=== PATIENT | male | born 1950 | race Two or more races ===

== ENCOUNTER 2018-01-18 16:44 | Inpatient (IN) | payer SELFPAY ==
[~2018-01-18] VITALS: Ht 180.3 cm; Wt 98.0 kg
[2018-01-18] MEDS ORDERED: PROMETHAZINE HCL 25 MG/ML 1ML IV PRN ×2 (17:30→19:45)
[2018-01-18] MEDS ORDERED: MORPHINE SULFATE 4 MG/ML SYR/VIAL IV ONE (17:30)
[2018-01-18 17:54] LABS: Basophils # (auto) 0.1 uL; Basophils % (auto) 0.3 % (0.0-2.0); Eosinophils # (auto) 0 uL; Eosinophils % (auto) 0.2 % (0.0-7.0); Hematocrit 47.4 % (41.0-53.0); Hemoglobin 16.7 g/dL (13.5-17.5); Lymphocytes # (auto) 0.7 uL; Lymphocytes % (auto) 2.7 % (10.0-50.0); Mean Corpuscular Hemoglobin 29.1 pg (28.0-32.0); Mean Corpuscular Hgb Conc. 35.3 g/dL (32.0-36.0); Mean Corpuscular Volume 82.5 fL (80.0-100.0); Monocytes # (auto) 1.4 uL; Monocytes % (auto) 5.7 % (0.0-12.0); Neutrophils % (auto) 91.1 % (37.0-80.0); Nucleated Red Blood Cells % 0.3 %; Platelet Count (auto) 236 10^3/uL (140-450); Red Blood Cells 5.75 10^6/uL (4.5-5.90); Red Cell Distribution Width 14.5 % (11.8-14.3); White Blood Cell 24.1 10^3/uL (4.4-10.8)
[2018-01-18 18:14] LABS: Alanine Aminotransferase 142 U/L (16-61); Albumin 3.1 g/dL (3.4-5.0); Alkaline Phosphatase 150 U/L (45-117); Amylase 164 U/L (25-115); Anion Gap 10 (5-15); Aspartate Aminotransferase 47 U/L (15-37); BUN/Creatinine Ratio 21.1; Bilirubin, Total 1.9 mg/dL (0.2-1.0); Blood Urea Nitrogen 24 mg/dL (7-18); Calcium 8.1 mg/dL (8.5-10.1); Carbon Dioxide 27 mmol/L (21-32); Chloride 98 mmol/L (98-107); GFR African American 83 mL/min; GFR Non-African American 68 mL/min; Glucose 134 mg/dL (74-106); Lipase 481 U/L (73-393); Potassium 3.2 mmol/L (3.5-5.1); Sodium 135 mmol/L (136-145); Total Protein 7.9 g/dL (6.4-8.2)
[2018-01-18] MEDS ORDERED: cefTRIAXone 1GM/10ml IVPUSH 10 ML IV ONE (19:45)
[2018-01-18] MEDS ORDERED: MORPHINE SULF INJ 2 MG/ML SYRINGE 1ML IV PRN (19:45)
[2018-01-18] MEDS ORDERED: NITROGLYCERIN 0.4 MG SL TAB SL PRN (19:45)
[2018-01-18] MEDS ORDERED: LACTULOSE 20Gm/30ML SOLN PO PRN (19:45)
[2018-01-18] MEDS ORDERED: SODIUM CHLORIDE 0.9% 1,000 ML IV ONE (19:45)
[2018-01-18] MEDS ORDERED: LORazepam 0.5 MG TAB PO PRN (19:45)
[2018-01-18] MEDS ORDERED: TEMAZEPAM 15 MG CAP PO PRN (19:45)
[2018-01-18] MEDS ORDERED: MORPHINE SULFATE 4 MG/ML SYR/VIAL IV PRN (19:45)
[2018-01-18 22:13] VITALS: BP 142/81
[2018-01-18] MEDS: metroNIDAZOLE 500MG/100ML 100 ML IV SCH (22:47)
[2018-01-18 22:48] VITALS: BP 142/81
[2018-01-18] MEDS: SODIUM CHLORIDE 0.9% 1,000 ML IV SCH (22:48)
[2018-01-18] MEDS: MORPHINE SULF INJ 2 MG/ML SYRINGE 1ML IV PRN (22:48)
[2018-01-19] VITALS (8 sets, daily range): BP systolic 120–150; BP diastolic 69–84
[2018-01-19] MEDS: SODIUM CHLORIDE 0.9% 1,000 ML IV SCH ×4 (06:06→22:24)
[2018-01-19] MEDS: metroNIDAZOLE 500MG/100ML 100 ML IV SCH ×3 (06:06→22:22)
[2018-01-19] MEDS: MORPHINE SULF INJ 2 MG/ML SYRINGE 1ML IV PRN ×3 (06:07→18:39)
[2018-01-19 07:08] LABS: Basophils # (auto) 0.3 uL; Basophils % (auto) 1.4 % (0.0-2.0); Eosinophils # (auto) 0 uL; Eosinophils % (auto) 0.2 % (0.0-7.0); Hematocrit 43.4 % (41.0-53.0); Hemoglobin 14.7 g/dL (13.5-17.5); Lymphocytes # (auto) 0.5 uL; Mean Corpuscular Hemoglobin 28.4 pg (28.0-32.0); Mean Corpuscular Hgb Conc. 33.9 g/dL (32.0-36.0); Mean Corpuscular Volume 83.7 fL (80.0-100.0); Monocytes # (auto) 1.1 uL; Monocytes % (auto) 6.2 % (0.0-12.0); Neutrophils # (auto) 16.1 uL; Neutrophils % (auto) 89.2 % (37.0-80.0); Nucleated Red Blood Cells % 0.1 %; Platelet Count (auto) 196 10^3/uL (140-450); Red Blood Cells 5.19 10^6/uL (4.5-5.90); Red Cell Distribution Width 14.5 % (11.8-14.3); White Blood Cell 18.1 10^3/uL (4.4-10.8)
[2018-01-19 07:36] LABS: Albumin 2.4 g/dL (3.4-5.0); Calcium 7.3 mg/dL (8.5-10.1)
[2018-01-19 07:38] LABS: BUN/Creatinine Ratio 30.3
[2018-01-19 07:42] LABS: Cholesterol 96 mg/dL (< 200); HDL Cholesterol 24 mg/dL (40-59); LDL Cholesterol 68 mg/dL (< 100); Triglycerides 98 mg/dL (< 150)
[2018-01-19 07:45] LABS: Urine Bacteria FEW /hpf (None Seen); Urine Blood 1+ /uL (Negative); Urine Mucus FEW (None Seen); Urine WBC 2 /hpf (0 - 3)
[2018-01-19 07:46] LABS: Bilirubin, Total 1.2 mg/dL (0.2-1.0); Total Protein 6.6 g/dL (6.4-8.2)
[2018-01-19] MEDS: PANTOPRAZOLE 40 MG/10 ML VIAL IV SCH (09:28)
[2018-01-19] MEDS: cefTRIAXone 1GM/10ml IVPUSH 10 ML IV SCH (09:29)
[2018-01-19] MEDS: POTASSIUM CHL 20MEQ/100ML 100 ML IV SCH ×2 (11:43→14:37)
[2018-01-19] MEDS ORDERED: ACETAMINOPHEN 325 MG TAB PO PRN (16:15)
[2018-01-20] MEDS: MORPHINE SULF INJ 2 MG/ML SYRINGE 1ML IV PRN ×2 (02:23→19:49)
[2018-01-20 03:55] LABS: Basophils # (auto) 0 uL; Basophils % (auto) 0.2 % (0.0-2.0); Eosinophils # (auto) 0.1 uL; Eosinophils % (auto) 0.6 % (0.0-7.0); Hematocrit 40.4 % (41.0-53.0); Hemoglobin 13.4 g/dL (13.5-17.5); Lymphocytes # (auto) 0.7 uL; Lymphocytes % (auto) 5.5 % (10.0-50.0); Mean Corpuscular Hgb Conc. 33.2 g/dL (32.0-36.0); Mean Corpuscular Volume 84.3 fL (80.0-100.0); Monocytes # (auto) 0.9 uL; Neutrophils # (auto) 11.4 uL; Neutrophils % (auto) 86.7 % (37.0-80.0); Nucleated Red Blood Cells % 0.1 %; Platelet Count (auto) 206 10^3/uL (140-450); Red Blood Cells 4.79 10^6/uL (4.5-5.90); Red Cell Distribution Width 14.5 % (11.8-14.3); White Blood Cell 13.2 10^3/uL (4.4-10.8)
[2018-01-20 04:18] LABS: Alanine Aminotransferase 65 U/L (16-61); Albumin 2.3 g/dL (3.4-5.0); Alkaline Phosphatase 127 U/L (45-117); Amylase 32 U/L (25-115); Anion Gap 9 (5-15); Aspartate Aminotransferase 18 U/L (15-37); Bilirubin, Total 0.7 mg/dL (0.2-1.0); Blood Urea Nitrogen 21 mg/dL (7-18); Carbon Dioxide 26 mmol/L (21-32); Chloride 108 mmol/L (98-107); GFR African American 134 mL/min; GFR Non-African American 111 mL/min; Glucose 95 mg/dL (74-106); Lipase 85 U/L (73-393); Magnesium 2.6 mg/dL (1.6-2.6); Potassium 3.1 mmol/L (3.5-5.1); Sodium 143 mmol/L (136-145); Total Protein 6.3 g/dL (6.4-8.2)
[2018-01-20 05:28] VITALS: BP 148/82
[2018-01-20] MEDS: metroNIDAZOLE 500MG/100ML 100 ML IV SCH ×3 (05:45→21:07)
[2018-01-20] MEDS: SODIUM CHLORIDE 0.9% 1,000 ML IV SCH ×3 (05:46→18:20)
[2018-01-20] MEDS ORDERED: POTASSIUM CHL 20 Meq TABLET PO ONE (06:15)
[2018-01-20] MEDS: cefTRIAXone 1GM/10ml IVPUSH 10 ML IV SCH (08:37)
[2018-01-20 09:00] VITALS: BP 143/84
[2018-01-20] MEDS: PANTOPRAZOLE 40 MG/10 ML VIAL IV SCH (11:12)
[2018-01-20 13:00] VITALS: BP 144/85
[2018-01-20 17:00] VITALS: BP 153/84
[2018-01-20 20:00] VITALS: BP 154/80
[2018-01-20] MEDS ORDERED: LACTULOSE 20Gm/30ML SOLN PO ONE (20:00)
[2018-01-20] MEDS ORDERED: FUROSEMIDE 20 MG/2 ML VIAL IV ONE (20:00)
[2018-01-20 22:00] VITALS: BP 150/81
[2018-01-21] VITALS (7 sets, daily range): BP systolic 143–154; BP diastolic 80–93
[2018-01-21] MEDS: LACTULOSE 20Gm/30ML SOLN PO SCH ×4 (02:18→18:00)
[2018-01-21] MEDS: metroNIDAZOLE 500MG/100ML 100 ML IV SCH ×3 (05:55→22:24)
[2018-01-21 08:36] LABS: Basophils # (auto) 0 uL; Basophils % (auto) 0.3 % (0.0-2.0); Eosinophils # (auto) 0.1 uL; Eosinophils % (auto) 1.2 % (0.0-7.0); Hematocrit 43.2 % (41.0-53.0); Hemoglobin 14.4 g/dL (13.5-17.5); Lymphocytes # (auto) 0.7 uL; Lymphocytes % (auto) 6.3 % (10.0-50.0); Mean Corpuscular Hemoglobin 27.9 pg (28.0-32.0); Mean Corpuscular Hgb Conc. 33.4 g/dL (32.0-36.0); Mean Corpuscular Volume 83.3 fL (80.0-100.0); Monocytes # (auto) 1.1 uL; Monocytes % (auto) 9.5 % (0.0-12.0); Neutrophils # (auto) 9.5 uL; Neutrophils % (auto) 82.7 % (37.0-80.0); Nucleated Red Blood Cells % 0.2 %; Platelet Count (auto) 238 10^3/uL (140-450); Red Blood Cells 5.18 10^6/uL (4.5-5.90); Red Cell Distribution Width 14.4 % (11.8-14.3); White Blood Cell 11.5 10^3/uL (4.4-10.8)
[2018-01-21 08:43] LABS: Albumin 2.3 g/dL (3.4-5.0); BUN/Creatinine Ratio 23.2; Calcium 7.6 mg/dL (8.5-10.1); Potassium 3.3 mmol/L (3.5-5.1)
[2018-01-21 08:46] LABS: Bilirubin, Total 2.7 mg/dL (0.2-1.0); Total Protein 6.6 g/dL (6.4-8.2)
[2018-01-21] MEDS: PANTOPRAZOLE 40 MG/10 ML VIAL IV SCH (10:09)
[2018-01-21] MEDS: cefTRIAXone 1GM/10ml IVPUSH 10 ML IV SCH (10:10)
[2018-01-21] MEDS ORDERED: POTASSIUM CHL 10 Meq TABLET PO ONE (12:45)
[2018-01-21] MEDS: MORPHINE SULF INJ 2 MG/ML SYRINGE 1ML IV PRN (19:41)
[2018-01-22 05:12] VITALS: BP 126/76
[2018-01-22] MEDS: LACTULOSE 20Gm/30ML SOLN PO SCH ×3 (05:54→12:00)
[2018-01-22] MEDS: metroNIDAZOLE 500MG/100ML 100 ML IV SCH (05:54)
[2018-01-22 07:49] LABS: Basophils # (auto) 0.1 uL; Basophils % (auto) 0.5 % (0.0-2.0); Eosinophils # (auto) 0.1 uL; Eosinophils % (auto) 1.4 % (0.0-7.0); Hematocrit 43.4 % (41.0-53.0); Hemoglobin 14.9 g/dL (13.5-17.5); Lymphocytes # (auto) 0.9 uL; Lymphocytes % (auto) 8.2 % (10.0-50.0); Mean Corpuscular Hemoglobin 28.9 pg (28.0-32.0); Mean Corpuscular Hgb Conc. 34.4 g/dL (32.0-36.0); Mean Corpuscular Volume 84.1 fL (80.0-100.0); Monocytes # (auto) 1.1 uL; Monocytes % (auto) 10.5 % (0.0-12.0); Neutrophils # (auto) 8.7 uL; Neutrophils % (auto) 79.4 % (37.0-80.0); Platelet Count (auto) 249 10^3/uL (140-450); Red Blood Cells 5.17 10^6/uL (4.5-5.90); Red Cell Distribution Width 13.9 % (11.8-14.3); White Blood Cell 10.9 10^3/uL (4.4-10.8)
[2018-01-22 08:09] LABS: Albumin 2.4 g/dL (3.4-5.0); BUN/Creatinine Ratio 26.2; Bilirubin, Total 0.8 mg/dL (0.2-1.0); Calcium 7.7 mg/dL (8.5-10.1); Total Protein 6.8 g/dL (6.4-8.2)
[2018-01-22 08:35] VITALS: BP 139/83
[2018-01-22] MEDS ORDERED: METR500T PO (10:14)
[2018-01-22] MEDS ORDERED: LEVO500T21 PO (10:14)
[2018-01-22] MEDS ORDERED: DOCU-94 PO (10:14)
[2018-01-22] MEDS ORDERED: POTASSIUM CHL 20 Meq TABLET PO ONE (10:15)
[2018-01-22] MEDS: cefTRIAXone 1GM/10ml IVPUSH 10 ML IV SCH (11:02)
[2018-01-22] MEDS: PANTOPRAZOLE 40 MG/10 ML VIAL IV SCH (11:03)
[2018-01-22 11:21] VITALS: BP 154/80
[2018-01-22 13:00] VITALS: BP 138/78
== END 2018-01-22 15:15 | disposition home or self-care (01) | DRG 871 ==
LOC: ER 16:49 → TELE 16:50 → TELE-CENTR 21:48
PROVIDERS: ADMIT Internal Medicine; ATTEND Internal Medicine
DX: A41.9 Sepsis, unspecified organism (principal); K85.90 Acute pancreatitis without necrosis or infection, unspecified; J98.11 Atelectasis; E66.9 Obesity, unspecified; E87.6 Hypokalemia; K29.70 Gastritis, unspecified, without bleeding; K59.00 Constipation, unspecified; R73.9 Hyperglycemia, unspecified; K76.0 Fatty (change of) liver, not elsewhere classified; Z90.49 Acquired absence of other specified parts of digestive tract; Z68.30 Body mass index [BMI] 30.0-30.9, adult
CPT/HCPCS: 36415; 71046; 74018; 74176; 74181; 80053; 80061; 81001; 82150; 83605; 83690; 83735; 83880; 84484; 85025; 87040; 93005; 94761; 96361; 96374; 96375; A6257; C9113; J0696; J3480; J3490